=== PATIENT | female | born 1990 | race Caucasian/White ===

== ENCOUNTER → 2020-12-03 11:11 | Outpatient (CLI) | payer OTHER, MEDICAID, SELFPAY ==
--- NOTE | 2020-12-03 | DI.US.S_ITS ---
PROCEDURE: US PELVIC COMPLETE INDICATIONS: ELEVATED TESTOSTERONE. EVALUATE FOR OVARIAN CYSTS. TECHNIQUE: Real-time scanning was performed of the pelvic organs, with image documentation. Additional endovaginal scanning was necessary due to incomplete visualization of the adnexal and endometrial structures by transabdominal scanning. COMPARISON: None. FINDINGS: Uterus: Uterus is normal in size at 6.8 x 4 x 2.3 cm. The endometrium measures 2.4 mm in combined thickness. Ovaries: The right ovary measures 4.6 x 1.7 x 1.9 cm. The left ovary measures 4.7 x 1.9 x 2 cm. The ovaries have a normal sonographic appearance. More than 12 follicles can be seen involving each ovary. No adnexal masses are seen. Other: No pathologic free abdominal or pelvic fluid. IMPRESSION: More than 12 follicles can be seen involving each ovary, which is consistent with polycystic ovarian syndrome. Dictated by: Nahid Mo M.D. on 12/03/2020 at 11:57 Approved by: Nahid Mo M.D. on 12/03/2020 at 11:58
== END ==
PROVIDERS: Referring Provider Naprapath; Visit Provider Naprapath
DX: E34.9 Endocrine disorder, unspecified (principal)
CPT/HCPCS: 76830; 76856